=== PATIENT | male | born 1960 | race Two or more races ===

== ENCOUNTER 2017-10-09 14:05 | Emergency (ER) | payer SELFPAY ==
[~2017-10-09] VITALS: Ht 205.7 cm; Wt 140.0 kg
[2017-10-09 14:07] VITALS: BP 124/78
== END 2017-10-09 15:21 | disposition left against medical advice (07) ==
LOC: ER 14:20
DX: R06.02 Shortness of breath (principal); Z53.21 Procedure and treatment not carried out due to patient leaving prior to being seen by health care provider